=== PATIENT | female | born 1965 | race Hispanic/Latino ===

== ENCOUNTER 2023-06-25 04:23 | Emergency (ER) | payer SELFPAY ==
[2023-06-25] MEDS ORDERED: Meclizine HCl 25 MG TAB ONE (04:51)
[2023-06-25] MEDS ORDERED: Ondansetron ODT 4 MG TAB ONE ×2 (04:51→04:56)
== END 2023-06-25 05:47 | disposition home or self-care (01) ==
LOC: BURERS 04:23
DX: H81.10 Benign paroxysmal vertigo, unspecified ear (principal); E11.9 Type 2 diabetes mellitus without complications; I10 Essential (primary) hypertension; E78.5 Hyperlipidemia, unspecified; Z79.899 Other long term (current) drug therapy; Z79.84 Long term (current) use of oral hypoglycemic drugs; D50.9 Iron deficiency anemia, unspecified
CPT/HCPCS: 99283; Q0162